=== PATIENT | male | born 1960 | race Caucasian/White ===

== ENCOUNTER 2016-07-06 01:14 | Emergency (ER) | payer SELFPAY ==
[~2016-07-06] VITALS: Ht 185.4 cm; Wt 97.8 kg
[2016-07-06 01:45] LABS: BASOPHIL COUNT 0.1 K/uL (0-0.1); EOSINOPHIL (%) 1.7 % (0-5); EOSINOPHIL COUNT 0.3 K/uL (0-0.3); HEMATOCRIT 48.6 % (38.0-50.0); IMMATURE GRANULOCYTE (%) 0.3 % (0.0-0.7); IMMATURE GRANULOCYTE COUNT 0.4 K/uL; LYMPHOCYTE COUNT 2.3 K/uL (1.0-2.8); MEAN PLAT.VOLUME 9.3 uM^3 (9.0-12.4); MONOCYTE (%) 7.2 % (3-12); MONOCYTE COUNT 1.2 K/uL (0-0.8); NEUTROPHIL (%) 75.8 % (45-76); NEUTROPHIL COUNT 12.1 K/uL (1.8-6.4); PLATELET COUNT 247 K/uL (156-360); RBC DIS.WIDTH-CV 13.5 % (11.8-14.6); RBC DIS.WIDTH-SD 42.7 % (39-53); RED BLOOD COUNT 5.65 M/uL (4.00-5.50); WHITE BLOOD COUNT 15.9 K/uL (4.1-10.2)
[2016-07-06 01:56] LABS: CHLORIDE 106 mEq/L (99-109); POTASSIUM 4.8 mEq/L (3.7-5.4); PROTHROMBIN TIME 10.1 (9.2-11.2); PTT 28.7 (25-32); SODIUM 140 mEq/L (136-147)
[2016-07-06 01:57] LABS: MAGNESIUM 2.2 mg/dL (1.3-2.7)
[2016-07-06 01:58] LABS: GLUCOSE 116 mg/dL (70-99)
[2016-07-06 01:59] LABS: ANION GAP 10 MEQ/L (2-14)
[2016-07-06 02:02] LABS: GFR ESTIMATE (CALCULATED) > 59 mL/min/
[2016-07-06 02:03] LABS: UREA NITROGEN (BUN) 12 mg/dL (9-23)
[2016-07-06 02:05] LABS: TROP-I INTERPRETATION NEGATIVE; TROPONIN-I 0.03 ng/mL (0.0-0.30)
[2016-07-06 03:05] LABS: INFLUENZA A VIRAL ANTIGEN NEGATIVE; INFLUENZA B VIRAL ANTIGEN NEGATIVE
[2016-07-06] MEDS ORDERED: LEVAQUIN750 MG PO (03:15)
[2016-07-06] MEDS ORDERED: HYCODAN SYRUP480 ML PO (03:15)
[2016-07-06] MEDS ORDERED: VENTOLIN HFA18 GM IH (03:15)
[2016-07-06] MEDS ORDERED: PREDNISONE20 MG PO (03:15)
[2016-07-06 03:39] VITALS: BP 122/64
== END 2016-07-06 03:40 | disposition home or self-care (01) ==
LOC: EME → EDBD 01:14 → EME 03:40
PROVIDERS: Emergency Medicine
DX: J18.9 Pneumonia, unspecified organism (principal); F17.200 Nicotine dependence, unspecified, uncomplicated
CPT/HCPCS: 71020; 80048; 83735; 84484; 85025; 85610; 85730; 87502; 93005; 94640; 99281; 99284; J7512; J7644